=== PATIENT | male | born 1995 | race Caucasian/White ===

== ENCOUNTER 2022-07-21 22:52 | Emergency (ER) | payer OTHER ==
[~2022-07-21] VITALS: Ht 182.9 cm; Wt 86.2 kg
[2022-07-21 23:11] VITALS: BP 132/85
--- NOTE | 2022-07-21 23:15 | NUR ---
TO LOBBY A/W BED AMBULATORY
[2022-07-22] MEDS ORDERED: NAPR-54 PO (01:55)
[2022-07-22] MEDS ORDERED: KETOROLAC 60 MG/2 ML VIAL IM ONE (02:00)
[2022-07-22 02:15] VITALS: BP 121/78
== END 2022-07-22 02:15 | disposition home or self-care (01) ==
LOC: MED 22:52
DX: S06.0X1A Concussion with loss of consciousness of 30 minutes or less, initial encounter (principal); R11.0 Nausea; Z79.899 Other long term (current) drug therapy; W19.XXXA Unspecified fall, initial encounter; Y93.23 Activity, snow (alpine) (downhill) skiing, snowboarding, sledding, tobogganing and snow tubing; Y92.89 Other specified places as the place of occurrence of the external cause; Y99.8 Other external cause status
CPT/HCPCS: 70450; 96372; 99285; J1885; 99284